=== PATIENT | male | born 1960 | race Caucasian/White ===

== ENCOUNTER 2020-01-13 09:07 | Day surgery (SDC) | payer OTHER, SELFPAY ==
[2020-01-01 19:56] VITALS: BMI 20.3
--- NOTE | 2020-01-06 15:26 | P.CONAN_ITS ---
Documented by User: Jeanine Zimmerman 01/06/20 15:27 HPI - Anesthesia Eval Consult details Narrative: 59yo M for Colonoscopy [facility] Past Medical History Medical History (Updated 01/13/20 @ 10:22 by Elle Rich) Anxiety Hair loss Hypertension Sleep disorder Surgical History Surgical History History of colonoscopy Social History Social History Smoking Status: Never smoker Use of substances other than those prescribed or required for medical reasons: No Advance Directives: No Advance Directives Information Provided: No Advance Directives on File: No Recently lost weight without trying: No Meds Allergies Allergy/AdvReac Type Severity Reaction Status Date / Time No Known Allergies Allergy Verified 01/08/20 08:58 Home Medications Medication Instructions Recorded Confirmed Type citalopram [Celexa] 30 mg PO DAILY 01/01/20 01/01/20 History finasteride 5 mg PO DAILY 01/01/20 01/01/20 History lisinopril 10 mg PO DAILY 01/01/20 01/01/20 History trazodone 100 mg PO BEDTIME 01/01/20 01/01/20 History Exam Exam Date and Time: January 06, 2020 1526 Height,Weight and Vital Signs: Height 5 ft 9 in Weight 62.596 kg Assessment and Plan Assessment Anesthesia Assessment: Chart Reviewed Documented by User: Elle Rich 01/13/20 10:22 [facility] Past Medical History Medical History (Updated 01/13/20 @ 10:22 by Elle Rich) Anxiety Hair loss Hypertension Sleep disorder Family History Family history of problems with anesthesia: No Surgical History Surgical History History of colonoscopy History of Problems with Anesthesia: No Social History Social History Smoking Status: Never smoker Use of substances other than those prescribed or required for medical reasons: No Advance Directives: No Advance Directives Information Provided: No Advance Directives on File: No Recently lost weight without trying: No Meds Allergies Allergy/AdvReac Type Severity Reaction Status Date / Time No Known Allergies Allergy Verified 01/08/20 08:58 Home Medications Medication Instructions Recorded Confirmed Type citalopram [Celexa] 30 mg PO DAILY 01/01/20 01/01/20 History finasteride 5 mg PO DAILY 01/01/20 01/01/20 History lisinopril 10 mg PO DAILY 01/01/20 01/01/20 History trazodone 100 mg PO BEDTIME 01/01/20 01/01/20 History Exam Height,Weight and Vital Signs: Vital Signs Temp Pulse Resp BP Pulse Ox 01/13/20 09:50 97.5 F 74 18 115/74 100 Airway Mallampati Class: II TM Dist: >3cm Neck ROM: Full Heart: RRR Lungs: CTAB Assessment and Plan Assessment Anesthesia Assessment: Anesthesia Plan Discussed and Chart Reviewed Final Anesthetic Review NPO: Yes ASA Class: II Final Preanesthetic Review: No Changes in Pt Med Stat, Meds/Allgs Chart Re viewed, Consent Obtained/Reviewed and Anes Risks/Benef Reviewed Patient Risk: Low Procedure Risk: Low Anesthetic Plan Anesthetic Plan: MAC: Disposition: Standard PACU
[2020-01-13 09:50] VITALS: BP 115/74; PULSE 74; RESP 18; TEMP 36.4; O2SAT 100
[2020-01-13] MEDS: Lactated Ringers 1,000 ML 100 ML IVCONT (10:05)
[2020-01-13 11:25] VITALS: BP 90/56; PULSE 79; RESP 14; TEMP 36.2; O2SAT 100
--- NOTE | 2020-01-13 11:27 | PM.OP ---
Brief Operative Note Date of Service: 01/13/20 Pre-op diagnosis: Screening, Hx of tubular adenomas Post-op diagnosis: other (Colon polyp, Diverticulosis) Procedure: Colonoscopy to cecum and TI with biopsy and removal of polyp Surgeon: Rock Boland Anesthesia: MAC Estimated blood loss (mL): 3.0 Pathology: other (A. Ascending colon polyp) Condition: stable Disposition: PACU
[2020-01-13 11:41] VITALS: BP 95/70; PULSE 53; RESP 16; TEMP 36.2; O2SAT 100
[2020-01-13 11:47] VITALS: BP 102/70
--- NOTE | 2020-01-13 11:51 | OP_ITS ---
SURGEON: Rock Boland MD INDICATIONS: The patient presents for evaluation of colorectal cancer screening and personal history of tubular adenoma of the colon. Full consent has been obtained from him for this, including risks of bleeding and perforation. PREOPERATIVE DIAGNOSIS: POSTOPERATIVE DIAGNOSIS: PROCEDURE PERFORMED: Colonoscopy to cecum and terminal ileum with biopsy and removal of polyp. ESTIMATED BLOOD LOSS: COMPLICATIONS: ANESTHESIA: Monitored anesthesia care. ASSISTANTS: SPECIMENS: PREOPERATIVE DIAGNOSES: Personal history of tubular adenoma of the colon and colorectal cancer screening. POSTOPERATIVE DIAGNOSES: Personal history of tubular adenoma of the colon and colorectal cancer screening, small colon polyp, diverticulosis and internal hemorrhoids. DESCRIPTION OF PROCEDURE: The patient was placed in the left lateral decubitus position. The digital rectal exam revealed no abnormalities. The Olympus video pediatric colonoscope was entered into the rectum and advanced easily to the cecum. Once in the cecum, I did identify normal-appearing cecal pouch with appendiceal orifice and a normal-appearing ileocecal valve. The terminal ileum was cannulated and appeared normal. The scope was withdrawn back in the colon. The entire cecum and ileocecal valve appeared normal. The scope was slowly withdrawn assessing all mucosal surfaces carefully. Preparation was excellent. In the ascending colon, was a flat approximately 4 mm polyp, which was biopsied and completely removed with cold biopsy forceps. I did not visualize any other polyps, colitis, nor angiodysplasia. There was a mild amount of sigmoid diverticulosis. In the rectum, scope was retroflexed visualizing internal hemorrhoids, but no other pathology. The scope was straightened out and withdrawn from the patient. He tolerated the procedure well and was returned to recovery area in stable condition. IMPRESSION: 1. Small colon polyp, status post biopsy and removal. 2. Diverticulosis. 3. Internal hemorrhoids. PLAN: The results of the biopsy will be checked. I would recommend a repeat colonoscopy in 5 years for further screening and surveillance. He will otherwise see me on a p.r.n. basis. MD TRISTON Elizabeth/HANNAH / [id number]
--- NOTE | 2020-01-13 12:06 | HO.POSTANES ---
Post Anesthesia Evaluation Post Anesthesia Evaluation Vital Signs: Vital Signs Temp Pulse Resp BP Pulse Ox 01/13/20 11:47 102/70 01/13/20 11:41 97.2 F 53 16 95/70 100 01/13/20 11:25 97.2 F 79 14 90/56 L 100 01/13/20 09:50 97.5 F 74 18 115/74 100 Anesthesia: Monitored Mental Status: Awake Pain Control: Satisfactory Nausea/Vomiting: None Hydration: Adequate Anesthesia-Related Issues: No Anes. Related Issues
== END 2020-01-13 23:59 | disposition home or self-care (01) ==
PROVIDERS: PCP Nurse Practitioner Family; Visit Provider Internal Medicine
PROC: 0DJD8ZZ Inspection of Lower Intestinal Tract, Via Natural or Artificial Opening Endoscopic (ICD-10-PCS; CPT 45378; principal; 2020-01-13 10:30)
DX: Z12.11 Encounter for screening for malignant neoplasm of colon (principal); D12.2 Benign neoplasm of ascending colon; K57.30 Diverticulosis of large intestine without perforation or abscess without bleeding; K64.8 Other hemorrhoids; I10 Essential (primary) hypertension; Z79.899 Other long term (current) drug therapy; Z86.010 Personal history of colon polyps
CPT/HCPCS: 45380; 88305

== ENCOUNTER 2021-03-29 09:36 | Outpatient (REF) | payer OTHER, SELFPAY ==
[2021-03-29 11:45] LABS: Appearance Urine CLEAR; Color Urine YELLOW; Glucose Urine UA NEG (NEG); Leukocyte Esterase Urine NEG (NEG); Nitrite Urine NEG (NEG); Urine Blood NEG (NEG); Urine Ketones NEG (NEG); Urine Protein NEG (NEG-TRACE)
[2021-03-29 12:11] LABS: Alanine Aminotransferase 17 U/L (0-40); Albumin Level 4.4 g/dL (3.5-5.0); Alkaline Phosphatase 81 U/L (39-117); Anion Gap 10 (12-20); Aspartate Amino Transferase 20 U/L (5-37); Bilirubin Total 0.6 mg/dL (0.0-1.0); Blood Urea Nitrogen 20 mg/dL (9-16); Calcium 9.5 mg/dL (8.4-10.2); Carbon Dioxide 31 mmol/L (22-29); Chloride 104 mmol/L (96-108); Cholesterol 217 mg/dL; Estimated Glomerular Filt Rate > 60; Glucose Fasting 90 mg/dL (60-99); HDL Cholesterol 76 mg/dL; LDL Cholesterol Calculated 127 mg/dl; Potassium 4.5 mmol/L (3.3-5.1); Sodium 140 mmol/L (135-145); Triglycerides 70 mg/dL
[2021-03-29 12:24] LABS: Prostate Specific Antigen Scr 0.13 ng/mL (<0.05-4.0); TSH reflex Free T4 2.07 uIU/mL (0.32-4.0)
== END 2021-03-29 09:37 | disposition home or self-care (01) ==
LOC: HO.HMGCLDS 09:36
PROVIDERS: Visit Provider Nurse Practitioner Family
DX: Z12.5 Encounter for screening for malignant neoplasm of prostate (principal); I10 Essential (primary) hypertension
CPT/HCPCS: 36415; 80053; 80061; 81003; 84153; 84443

== ENCOUNTER 2021-09-06 15:54 | Emergency (ER) | payer OTHER, SELFPAY ==
--- NOTE | ~2021-09-06 | XR_ITS ---
EXAMINATION: XR ANKLE, LEFT CLINICAL INFORMATION: Left ankle pain. COMPARISON: None TECHNIQUE: AP, lateral, and mortise views of the left ankle. FINDINGS: There is an acute, mildly displaced oblique fracture of the distal fibula metadiaphysis as well as the medial malleolus. Associated anteromedial displacement of the tibia relative to the talus is seen. The talar dome is intact. A definitive posterior malleolus fracture is not seen. There is mild soft tissue swelling. The tarsal bones are normally aligned. Small plantar calcaneal spur. XR/XR ankle LT 2V IMPRESSION: Acute displaced left femoral fracture as detailed above.
--- NOTE | ~2021-09-06 | XR_ITS ---
EXAMINATION: XR ANKLE, LEFT CLINICAL INFORMATION: Postreduction COMPARISON: Left ankle radiographs performed earlier the same day TECHNIQUE: AP and crosstable lateral views of the left ankle. FINDINGS: Overlying splint material obscures fine osseous detail. Significant interval improvement alignment. Again seen is a Hoover type B distal fibular fracture, displaced transverse medial malleolar fracture and a suspected minimally displaced posterior malleolar fracture. Ankle mortise is now more congruent. No new fracture identified XR/XR ankle LT 2V IMPRESSION: . 1. Significantly improved alignment of the trimalleolar ankle fractures.
[2021-09-06 15:59] VITALS: BP 138/74; PULSE 69; RESP 16; TEMP 37.3; O2SAT 98; BMI 21.1
--- NOTE | 2021-09-06 16:13 | ED_ITS ---
HPI - General Adult General Chief complaint: Extremity Injury, Lower Stated complaint: L ANKLE PAIN/SWELLS/P ROLLED TENNIS Time Seen by Provider: 09/06/21 16:13 Source: patient Mode of arrival: wheelchair Limitations: no limitations History of Present Illness HPI narrative: Patient is a 61 year old male with a history of HTN presenting to the emergency department today with left ankle pain. Patient states that he lost his balance while playing tennis and his left ankle snapped. Patient denies hitting his head with the incident or any loss of consciousness. Patient denies any dizziness, lightheadedness, abdominal pain, nausea, vomiting, fever, chills, blurry vision, double vision, loss of vision, chest pain, difficulty breathing, shortness of breath, back pain, night sweats, pain with urination, increased urinary frequency, increased urinary urgency, blood in [his/her] urine or stool, syncope or a near syncopal episode, bowel incontinence, bladder incontinence, bowel retention, bladder retention, or any other complaints at this time. Onset (ago): hour(s) Location: left and lower extremity Radiation: non-radiation Severity: mild Severity scale (1-10): >10 Quality: aching Pain Consistency: constant Relieving factors: none Exacerbating factors: movement Associated symptoms: denies other symptoms Treatments prior to arrival: none Related Data Home Medications Medication Instructions Recorded Confirmed finasteride 5 mg tablet 5 mg PO DAILY 01/01/20 01/01/20 trazodone 100 mg tablet 100 mg PO BEDTIME 01/01/20 01/01/20 Previous Rx's Medication Instructions Recorded lisinopril 10 mg tablet 10 mg PO DAILY 90 days #90 tabs 07/10/21 citalopram 10 mg tablet 10 mg PO DAILY 90 days #90 tabs 08/12/21 citalopram 20 mg tablet 20 mg PO DAILY 90 days #90 tabs 08/12/21 trazodone 100 mg tablet 100 mg PO BEDTIME PRN sleep 90 08/12/21 days #90 tabs Allergies Allergy/AdvReac Type Severity Reaction Status Date / Time No Known Allergies Allergy Verified 05/21/21 13:07 Review of Systems Constitutional: Constitutional: Reports no additional constitutional complaints, Denies chills, Denies fever(s) and Denies night sweats Eyes: Eyes: Reports no additional eye complaints, Denies blurry vision, Denies change in vision, Denies diplopia, Denies eye discharge, Denies loss of vision and Denies eye pain ENT: Denies dizziness Cardiovascular: Cardiovascular: Reports no additional cardiovascular complaints, Denies chest pain, Denies lightheadedness, Denies Loss of Consciousness and Denies dyspnea Respiratory: Respiratory: Reports no additional respiratory complaints and Denies dyspnea Gastrointestinal: Gastrointestinal: Reports no additional gastrointestinal complaints, Denies abdominal pain, Denies melena, Denies hematochezia, Denies change in bowel habits and Denies change in stool character Genitourinary: Genitourinary: Reports no additional male genitourinary complaints, Denies hematuria, Denies oliguria, Denies difficulty urinating, Denies dysuria, Denies urinary frequency, Denies urinary hesitancy, Denies urinary incontinence and Denies urinary urgency Musculoskeletal: Musculoskeletal: Reports no additional musculoskeletal complaints, Denies numbness and Denies tingling Neurologic: Denies dizziness, Denies loss of vision, Denies numbness and Denies tingling Psychiatric: Psychiatric: Reports no additional psychiatric complaints Endocrine: Endocrine: Reports no additional endocrine complaints Hematologic/Lymphatic: Hematologic/Lymphatic: Reports no additional hematologic/lymphatic complaints Allergic/Immunologic: Allergic/Immunologic: Reports no additional allergic/immunologic complaints PMFSH Past Medical History Attestation statement: The following information was validated with the patient. Source: old records reviewed Medical History (Updated 09/06/21 @ 18:59 by DANAE Meraz) Anxiety Hair loss Hypertension Sleep disorder Surgical History History of colonoscopy Social History Social History Alcohol intake: current Alcohol intake frequency: 0-2 drinks per day Alcohol type: wine Patient Tobacco Use Status: Never used Tobacco Use of substances other than those prescribed or required for medical reasons: No Advance Directives: No Advance Directives Information Provided: No Physical Exam ED Vital Signs: Vital Signs - 24 hr 09/06/21 15:59 Temperature 99.1 F Pulse Rate 69 Respiratory Rate 16 Blood Pressure 138/74 Pulse Oximetry 98 Oxygen Delivery Method Room Air BMI result Body Mass Index 21.1 Const General: cooperative, no acute distress, alert and awake Nutritional Appearance: well nourished Orientation/consciousness: patient oriented x3 Limitations: no limitations HENMT Head: Yes normal to inspection and Yes atraumatic Ears: hearing grossly normal bilaterally and external ears normal General nose exam: Normal external nose present, no nasal discharge noted and no epistaxis Face and sinus: Yes normal facial exam, No abrasion and No laceration Mouth: Normal oral and palatal mucosa present, no drooling and no muffled voice Eyes General: appearance normal, both eyes and all related structures Periorbital: periorbital findings normal Eyelids: Yes eyelids normal Conjunctivae: conjunctivae normal Pupils: Equal, round and reactive pupils present EOM: EOMs intact bilaterally Neck Neck: Yes normal visual inspection, Yes full ROM and Yes no lymphadenopathy Chest Chest palpation & inspection: normal inspection of the chest Resp Effort & Inspection: normal respiratory effort and able to speak in complete sentences Auscultation: clear to auscultation bilaterally Cardio Rate: regular rate Rhythm: regular rhythm GI Inspection: Yes normal to inspection Palpation (GI): Soft to palpation, not firm and nontender Neuro General: patient oriented x3 and moves all extremities Cranial nerves: Yes Equal, round and reactive pupils present Cognition (Neuro): normal cognition Motor exam (neuro): 5/5 motor strength present throughout Sensory Exam: Normal double simultaneous stimulation for sensation Coordination: [id number] test normal Extrem Other: left ankle is obviously deformed, painful to palpation, no open areas General: Yes capillary refill normal Psych Appearance: grossly normal Mental Status: mental status grossly normal Affect: normal affect Attitude: cooperative Thought process: Normal thought process present Thought content: Normal thought content present Insight: Good insight present (Psych) Course Consultations Consultation #1: Spoke to Dr. Hsu who recommended the patient's ankle be reduced here in the ED, splinted, and the patient follow up with their office next Monday. Procedures Orthopedic Fracture Reduction Fracture #1: Time Out Performed: Yes Side: left Fracture Reduction Location: fibula and other (ankle) Analgesia: hematoma block Technique: direct manipulation and traction/counter-traction Post Reduction X-rays Demonstrate: anatomical reduction Post-reduction neuro exam: intact Post-reduction vascular exam: intact Splint Applied: Yes Patient Tolerated Procedure: well Orthopedic Splinting/Casting Injury #1: Side: left Lower Extremity Injury Location: ankle Lower Extremity Immobilizer: posterior splint and El wrap Other Orthopedic Equipment: crutches Medical Decision Making MDM Narrative Medical decision making narrative: Patient is a 61 year old male presenting to the emergency department today with left ankle pain. Patient's physical exam showed an obviously deformed left ankle with no open areas. Left lower extremity had intact PMS. Patient's left ankle x-ray showed a mildly displaced oblique fracture of the distal fibula metadiaphysis as well as the medial malleolus with associated anteromedial d isplacement of the tibia relative to the talus. I explained my physical exam findings as well as all test results to the patient. I answered all questions asked by the patient. My attending physician Dr. Navarro placed a hematoma block in the left ankle and together, we reduced the fracture. Patient's PMS was intact prior to and after the reduction. Patient's post reduction film showed significantly improved alignment of the trimallelolar fractures. Patient's ankle was splinted without incident. I stressed the importance of the patient taking his medication as prescribed. I stressed the importance of the patient following up with his primary care provider and an orthopedic provider. I stressed the importance of the patient being non-weight bearing on the left lower extremity and keeping the left lower extremity elevated at all times possible. I stressed the importance of the patient returning to the emergency department immediately if his symptoms were to worsen or if he were to develop any dizziness, shortness of breath, difficulty breathing, chest pain, blurry vision, loss of vision, nausea, vomiting, abdominal pain, fever, chills, back pain, or any other complaints. Patient verbalized agreement and understanding with this treatment plan and discharge. Differential Diagnosis Differential Diagnosis: left ankle fracture Medical Records Medical records reviewed: Yes I reviewed the patient's medical records. Imaging Data Left ankle x-ray: Attestation: I personally reviewed and interpreted this imaging study as follows: My impression: Acute ankle fracture with displacement Radiologist's impression: EXAMINATION: XR ANKLE, LEFT CLINICAL INFORMATION: Left ankle pain.? COMPARISON: None? TECHNIQUE: AP, lateral, and mortise views of the left ankle. FINDINGS: There is an acute, mildly displaced oblique fracture of the distal fibula metadiaphysis as well as the medial malleolus. Associated anteromedial displacement of the tibia relative to the talus is seen. The talar dome is intact. A definitive posterior malleolus fracture is not seen. There is mild soft tissue swelling. The tarsal bones are normally aligned. Small plantar calcaneal spur. XR/XR ankle LT 2V IMPRESSION: Acute displaced left fibular fracture as detailed above. Dictated By: Jamie Hooker MD Signed By: Electronically signed by Jamie Hooker MD 09/06/21 1652 Left ankle x-ray post reduction: Attestation: I personally reviewed and interpreted this imaging study as follows: My impression: Improved anatomical alignment Radiologist's impression: EXAMINATION: XR ANKLE, LEFT CLINICAL INFORMATION: Postreduction? COMPARISON: Left ankle radiographs performed earlier the same day? TECHNIQUE: AP and crosstable lateral views of the left ankle. FINDINGS: Overlying splint material obscures fine osseous detail. Significant interval improvement alignment. Again seen is a Hoover type B distal fibular fracture, displaced transverse medial malleolar fracture and a suspected minimally displaced posterior malleolar fracture. Ankle mortise is now more congruent. No new fracture identified? XR/XR ankle LT 2V IMPRESSION: 1. Significantly improved alignment of the trimalleolar ankle fractures. Dictated By: Wm Pavon Signed By: Electronically signed by Antwon 09/06/21 1037 Discharge Plan Discharge Clinical Impression: Ankle fracture Patient Disposition: Home, Self-Care Instructions: Ankle Fracture (ED), Crutch Instructions (ED), Closed Reduction Internal Fixation of Leg Fracture in Adults (DC) Additional Instructions: Elevate the left lower extremity as much as possible. Follow up with your primary care provider and an orthopedic shoes salesperson. Return to the emergency department immediately if your symptoms worsen or if you develop any dizziness, shortness of breath, difficulty breathing, chest pain, blurry vision, loss of vision, nausea, vomiting, abdominal pain, fever, chills, back pain, or any other complaints. Prescriptions: No Action lisinopril 10 mg tablet 10 mg PO DAILY 90 Days Qty: 90 1RF citalopram 20 mg tablet 20 mg PO DAILY 90 Days Qty: 90 0RF citalopram 10 mg tablet 10 mg PO DAILY 90 Days Qty: 90 0RF Rx Instructions: please take concurrently with citalopram 20mg tabs (total:30mg daily) trazodone 100 mg tablet 100 mg PO BEDTIME PRN (Reason: sleep) 90 Days Qty: 90 0RF finasteride 5 mg Tablet 5 mg PO DAILY trazodone 100 mg Tablet 100 mg PO BEDTIME Referrals: [facility] [place] [facility] [Provider Group] (Call tomorrow to schedule follow up with an orthopedic shoes salesperson. ) Gucci Andrade, [employer] [Primary Care Provider] - Print Language: Serbian
[2021-09-06] MEDS: Lidocaine HCl 1 % MPF 5 ML VIAL 10 ML SUBCUT (18:05)
--- NOTE | 2021-09-06 18:05 | PC.NURSE ---
lidocaine administered by provider prior to fx reduction. pt denies any pain at this time, pending radiology results.
== END 2021-09-06 19:32 | disposition home or self-care (01) ==
PROVIDERS: Emergency Provider Emergency Medicine; PCP Nurse Practitioner Family
DX: S82.892A Other fracture of left lower leg, initial encounter for closed fracture (principal); I10 Essential (primary) hypertension; Y33.XXXA Other specified events, undetermined intent, initial encounter; Y93.59 Activity, other involving other sports and athletics played individually; Y92.312 Tennis court as the place of occurrence of the external cause; Y99.9 Unspecified external cause status; Z79.899 Other long term (current) drug therapy
CPT/HCPCS: 27818; 29515; 73600; 99283; 99284

== ENCOUNTER 2021-09-15 10:39 | Day surgery (SDC) | payer OTHER, SELFPAY ==
--- NOTE | 2021-09-14 10:01 | P.CONAN_ITS ---
Documented by User: Jeanine Zimmerman NP 09/14/21 10:10 HPI - Anesthesia Eval Consult details Narrative: 61yo M for Ankle Fracture ORIF PMFSH Active Problems Active Problems: All Active Problems (Updated 09/13/21 @ 16:42 by DAMIAN FarrarMICHELLE) Physical exam (Acute) Bimalleolar ankle fracture (Acute) Cerumen impaction (Acute) Screening PSA (prostate specific antigen) (Acute) HTN (hypertension) (Acute) Hair loss (Acute) Sleep disorder (Acute) Past Medical History Medical History Anxiety Hair loss Hypertension Sleep disorder Family History Family History Sister Mental health disorder Family history of problems with anesthesia: No Surgical History Surgical History (Updated 09/15/21 @ 11:11 by Kellen Godwin RN) History of colonoscopy History of Problems with Anesthesia: No Social History Social History Housing: House Alcohol intake: current Alcohol intake frequency: 0-2 drinks per day Alcohol type: wine Patient Tobacco Use Status: Former Tobacco user Quit Date: 30 yr ago e-Cigarette/Vaping Use: Never Used Second Hand Smoke Exposure: No Use of substances other than those prescribed or required for medical reasons: No Are you DNR?: No Advance Directives: No Advance Directives Information Provided: Yes service: No Current occupational status: unemployed Cognitive needs: No Hearing needs: No Vision needs: No Meds Allergies Allergy/AdvReac Type Severity Reaction Status Date / Time No Known Allergies Allergy Verified 09/13/21 16:44 Home Medications Medication Instructions Recorded Confirmed Last Taken Type finasteride 5 mg tablet 5 mg PO DAILY 01/01/20 09/15/21 Unknown History trazodone 100 mg tablet 100 mg PO BEDTIME 01/01/20 09/15/21 Unknown History Exam Exam Date and Time: September 14, 2021 1001 Pertinent Lab Results Pertinent Lab Results: Laboratory Tests 03/29/21 09:40 Sodium 140 Potassium 4.5 Chloride 104 Carbon Dioxide 31 H BUN 20 H Creatinine 0.83 Assessment and Plan Assessment Anesthesia Assessment: Chart Reviewed Final Anesthetic Review Family History of Problems with Anesthesia: No History of Problems with Anesthesia: No Documented by User: Perry Olivera MD 09/15/21 15:47 HPI - Anesthesia Eval Consult details Narrative: 61yo M for Ankle Fracture ORIF As per pre op RN patient yin 100.9 , repeat temp was 98.7 F Patient asymptomatic , denies any symptoms including URI or urinary . Does admit that he has been feeling a little warm . Case discussed with the surgeon , possibly may be secondary to trauma , As per him this is urgent and needs to proceed . [facility] Past Medical History Medical History Anxiety Hair loss Hypertension Sleep disorder Family History Family History Sister Mental health disorder Surgical History Surgical History (Updated 09/15/21 @ 11:11 by Kellen Godwin RN) History of colonoscopy Social History Social History Housing: House Alcohol intake: current Alcohol intake frequency: 0-2 drinks per day Alcohol type: wine Patient Tobacco Use Status: Former Tobacco user Quit Date: 30 yr ago e-Cigarette/Vaping Use: Never Used Second Hand Smoke Exposure: No Use of substances other than those prescribed or required for medical reasons: No Are you DNR?: No Advance Directives: No Advance Directives Information Provided: Yes service: No Current occupational status: unemployed Cognitive needs: No Hearing needs: No Vision needs: No Meds Allergies Allergy/AdvReac Type Severity Reaction Status Date / Time No Known Allergies Allergy Verified 09/13/21 16:44 Home Medications Medication Instructions Recorded Confirmed Last Taken Type finasteride 5 mg tablet 5 mg PO DAILY 01/01/20 09/15/21 Unknown History trazodone 100 mg tablet 100 mg PO BEDTIME 01/01/20 09/15/21 Unknown History Exam Airway Mallampati Class: III TM Dist: >3cm Neck ROM: Full Loose/Missing/Broken Teeth: Yes (Chipped teeth , fillings , poor dentition globally ) Heart: S1,S2 Lungs: b/l breath sounds Assessment and Plan Assessment Anesthesia Assessment: Anesthesia Plan Discussed Final Anesthetic Review NPO: Yes ASA Class: II (urgent ) Final Preanesthetic Review: Meds/Allgs Chart Reviewed, Consent Obtained/Reviewed and Anes Risks/Benef Reviewed Patient Risk: Intermediate Procedure Risk: Intermediate Anesthetic Plan Anesthetic Plan: GA Disposition: Standard PACU
[2021-09-15] VITALS (11 sets, daily range): BP systolic 117–131; BP diastolic 75–84; PULSE 70–101; RESP 15–18; TEMP 36.6–38.3; O2SAT 95–100; BMI 20.6
--- NOTE | ~2021-09-15 | FL_ITS ---
EXAMINATION: XR FLUOROSCOPY WITH IMAGES CLINICAL INFORMATION: Left ankle trimalleolar fracture, reduction. COMPARISON: Radiographs left ankle 09/06/2021 TECHNIQUE: Fluoroscopy performed by Dr. Bhavesh Floyd. Fluoroscopy time: 0.4 minutes. Cumulative Dose: 2.58 mGy. DAP: 0.045 Gy-cm2. Images: 5. FINDINGS: Lateral malleoli fracture is reduced with lateral side plate and multiple screws. Medial malleoli fracture is reduced with 2 screws. Fracture fragments are in near-anatomic alignment. Ankle mortise is symmetric. Hardware is intact. No destructive process. There is small vertically oriented fracture periphery posterior malleolus again noted. No significant displacement. FL/FL guidance in OR IMPRESSION: Status post open reduction internal fixation ankle fracture. Hardware intact. Near-anatomic alignment.
--- NOTE | 2021-09-15 11:34 | PC.NURSE ---
pt temp 99.5 temporal. oral temp 100.9. anesthesia made aware and will come evaluate. pt states has been feeling warm for a few days but no ther symptoms. ls clear
[2021-09-15] MEDS: Lactated Ringers 1,000 ML 100 ML IVCONT (11:51)
--- NOTE | 2021-09-15 12:05 | MHC.SHP ---
Pre-Procedural Eval Section A Date of Service: 09/15/21 The patient is an INPATIENT: No Changes since office visit: Yes Patient answered all questions; No Cold of Flu in the past 2 weeks, No New Medical Problems and No Changes in Medication The History & Physical has been completed within 30 days and I have reviewed it.: Yes Section B Chief Complaint: ankle fx Allergies: Allergies Allergy/AdvReac Type Severity Reaction Status Date / Time No Known Allergies Allergy Verified 09/13/21 16:44 Plan I have reviewed the history and physical and performed a pertinent physical examination on my patient. No changes have occurred unless specified.
--- NOTE | 2021-09-15 15:38 | P.BOP_ITS ---
Brief Operative Note Date of Service: 09/15/21 Pre-op diagnosis: left ankle fracture Post-op diagnosis: same Procedure: ORIF left ankle bimall Implants: Gina lateral locking plate Gina 4.0 cannulated screws, medial x2 Surgeon: Bhavesh Floyd MD Anesthesia: GETA and local Was an Loader Magazine Grinder used for this Procedure?: Yes Loader Magazine Grinder: Pilar Da Silva Estimated blood loss (mL): 5 Tourniquet time (min): 70 IV fluids (mL): 1,000 Pathology: none sent Condition: stable Disposition: PACU
--- NOTE | 2021-09-15 15:43 | P.OP_ITS ---
Operative Note Operative Note Date of Service: 09/15/21 Narrative: Date of Service: 09/15/21 Pre-op diagnosis: left ankle fracture Post-op diagnosis: same Procedure: ORIF left ankle bimall Implants: Gina lateral locking plate Gina 4.0 cannulated screws, medial x2 Surgeon: Bhavesh Floyd MD Anesthesia: GETA and local Was an Stud Dairy Cattle Farmer used for this Procedure?: Yes Stud Dairy Cattle Farmer: Pilar Da Silva Estimated blood loss (mL): 5 Tourniquet time (min): 70 IV fluids (mL): 1,000 Pathology: none sent Condition: stable Disposition: PACU Procedure in detail: Patient was brought to the operating room and placed supine on the operative table. All bony prominences were well padded and a time-out was called to identify proper site proper procedure proper surgeon. IV antibiotics per weight were administered. I began by exsanguinating limb is slightly tourniquet to 300 mm Hg. I then made a standard posterolateral incision over the fibula. Full- thickness flaps were taken down to the fibular shaft and distal fibula. The fracture was identified and cleaned with a combination of curette, rongeur and irrigation. It was a long oblique fracture with comminution anterodistally. A sharp was used to provisionally reduce the fracture and 2 A-P scres were placed using AO lag screw technique. A 6 hole distal fibular locking plate was applied using standard AO technique. Biplanar fluoroscopy was used to confirm hardware position and fracture reduction. Once I was satisfied that both of these were acceptable I irrigated copiously and turned my attention to the medial side. The transverse medial malleolar fracture was identified after skin incision. Full-thickness skin flaps were developed and, With a sharp tenaculum, the fracture was reduced. 2 threaded K-wires were then placed from distal to proximal and perpendicular to the fracture. Biplanar fluoroscopy was used to confirm positioning and then they were overdrilled and 2 40 mm 4.0 partially- threaded cannulated cancellous screws were placed across the fracture. I was satisfied with the position and the fracture reduction based on biplanar fluoroscopy. This syndesmosis was tested using external rotation test and was found to be stable. Therefore all instrumentation was removed and copious irrigation was performed. Absorbable suture and chantell were used for closure and the patient was placed into sterile dressings and a well-padded posterior splint. Tourniquet was let down and the patient was extubated brought to recovery room in stable condition there were no known complications.
[2021-09-15] MEDS: Acetaminophen 325 MG TABLET 650 MG PO (16:29)
[2021-09-15] MEDS: HYDROmorphone HCl 0.5 MG/0.5 ML SYRINGE 0.25 MG IVPUSH (16:32)
== END 2021-09-15 17:15 | disposition home or self-care (01) ==
PROVIDERS: PCP Nurse Practitioner Family; Visit Provider Orthopaedic Surgery
PROC: (CPT 27814; principal; 2021-09-15 13:20)
DX: S82.842A Displaced bimalleolar fracture of left lower leg, initial encounter for closed fracture (principal); W18.49XA Other slipping, tripping and stumbling without falling, initial encounter; Y93.73 Activity, racquet and hand sports; Y92.9 Unspecified place or not applicable; I10 Essential (primary) hypertension; F41.1 Generalized anxiety disorder; G47.9 Sleep disorder, unspecified; Z79.899 Other long term (current) drug therapy
CPT/HCPCS: 27814; A4649; C1713; J0690; J1100; J1170; J2250; J2405; J2795; J3010

== ENCOUNTER 2021-09-27 07:48 | Outpatient (REF) | payer OTHER, SELFPAY ==
--- NOTE | ~2021-09-27 | XR_ITS ---
EXAMINATION: XR ANKLE, LEFT CLINICAL INFORMATION: Fracture COMPARISON: Previous x-rays 09/06/2021 and intraoperative fluoroscopy 09/15/2021 TECHNIQUE: AP, lateral, and mortise views of the left ankle. FINDINGS: There are 2 screws transfixing the medial malleolar fracture. There is a plate and screws transfixing the distal fibular shaft fracture. Hardware appears unchanged. Alignment is anatomic. The ankle mortise is normal. There are skin chantell. There is a small plantar calcaneal spur. XR/XR ankle LT min 3V IMPRESSION: ORIF of medial malleolar and distal fibular shaft fractures.
== END 2021-09-27 07:49 | disposition home or self-care (01) ==
LOC: HO.HOSX 07:48
PROVIDERS: Visit Provider Physician Assistant
DX: M25.572 Pain in left ankle and joints of left foot (principal)
CPT/HCPCS: 73610

== ENCOUNTER 2021-10-25 07:54 | Outpatient (REF) | payer OTHER, SELFPAY ==
--- NOTE | ~2021-10-25 | XR_ITS ---
EXAMINATION: XR ANKLE, LEFT CLINICAL INFORMATION: Pain COMPARISON: Ankle radiographs 09/27/2021 TECHNIQUE: AP, lateral, and mortise views of the left ankle. FINDINGS: Interval removal of soft tissue chantell. Again seen are postoperative changes of ORIF of the medial malleolus and distal fibular fractures in unchanged alignment, with decreasing conspicuity of the fracture margins suggesting ongoing healing. Ankle mortise is congruent. Disuse osteopenia. Soft tissues are unremarkable. Moderate tibiotalar joint effusion. XR/XR ankle LT min 3V IMPRESSION: Interval removal of soft tissue chantell. Again seen are postoperative changes of ORIF of the medial malleolus and distal fibular fractures in unchanged alignment, with decreasing conspicuity of the fracture margins suggesting ongoing healing. Disuse osteopenia. Moderate tibiotalar joint effusion.
== END 2021-10-25 07:55 | disposition home or self-care (01) ==
LOC: HO.HOSX 07:54
PROVIDERS: Visit Provider Physician Assistant
DX: M25.572 Pain in left ankle and joints of left foot (principal)
CPT/HCPCS: 73610

== ENCOUNTER 2021-11-22 10:01 | Outpatient (REF) | payer OTHER, SELFPAY ==
[2021-11-22 11:16] LABS: MANUAL DIFF FLAG NO
[2021-11-22 11:24] LABS: Basophils Percent Auto 0.8 % (0-2); Eosinophils Absolute Auto 0.1 X10*3/uL (0.0-0.4); Eosinophils Percent Auto 1.3 % (0-4); Hematocrit 39.8 % (42.0-52.0); Hemoglobin 13.6 g/dl (14.0-18.0); Imm Gran Abs Auto 0.02 X10*3/uL (0.00-0.03); Imm Gran Pct Auto 0.4 % (0.0-0.4); Lymphocytes Absolute Auto 1.6 X10*3/uL (1.2-4.9); Lymphocytes Percent Auto 31.3 % (20-40); Mean Corpuscular HGB Conc 34.2 g/dl (31.0-36.0); Mean Corpuscular Hemoglobin 31.9 pg (27.0-33.0); Mean Corpuscular Volume 93.4 fL (80.0-98.0); Mean Platelet Volume 10.1 fL (9.4-12.4); Monocytes Absolute Auto 0.3 X10*3/uL (0.1-1.2); Monocytes Percent Auto 6.3 % (2-11); Neutrophils Absolute Auto 3.1 x10*3/uL (2.0-8.3); Neutrophils Percent Auto 59.9 % (45-73); Platelet Count 197 X10*3/uL (160-400); Red Blood Count 4.26 X10*6/uL (4.60-5.80); Red Cell Distribution Width 12.4 % (11.0-16.0); White Blood Count 5.2 X10*3/uL (4.8-10.8)
[2021-11-22 11:26] LABS: Appearance Urine Clear; Color Urine Yellow; Glucose Urine UA Negative (Negative); Leukocyte Esterase Urine Negative (Negative); Nitrite Urine Negative (Negative); PH 8.5 (5.0-9.0); Specific Gravity - Urine 1.015 (1.005-1.025); Urine Blood Negative (Negative); Urine Ketones Negative (Negative); Urine Protein Negative (Neg-Trace)
[2021-11-22 11:40] LABS: Alanine Aminotransferase 15 U/L (0-40); Albumin Level 4.3 g/dL (3.5-5.0); Alkaline Phosphatase 88 U/L (39-117); Anion Gap 13 (12-20); Aspartate Amino Transferase 17 U/L (5-37); Bilirubin Total 0.7 mg/dL (0.0-1.0); Blood Urea Nitrogen 11 mg/dL (9-16); Carbon Dioxide 29 mmol/L (22-29); Chloride 102 mmol/L (96-108); Cholesterol 206 mg/dL; Estimated Glomerular Filt Rate > 60; Glucose Fasting 83 mg/dL (60-99); HDL Cholesterol 69 mg/dL; LDL Cholesterol Calculated 122 mg/dl; Potassium 4.1 mmol/L (3.3-5.1); Sodium 140 mmol/L (135-145); Total Protein 6.6 g/dL (6.5-8.0); Triglycerides 78 mg/dL
[2021-11-22 12:03] LABS: TSH reflex Free T4 1.42 uIU/mL (0.32-4.0)
== END 2021-11-22 10:02 | disposition home or self-care (01) ==
LOC: HO.HMGCLDS 10:01
PROVIDERS: PCP Nurse Practitioner Family; Visit Provider Nurse Practitioner Family
DX: Z00.00 Encounter for general adult medical examination without abnormal findings (principal)
CPT/HCPCS: 36415; 80053; 80061; 81003; 84443; 85025

== ENCOUNTER 2021-11-24 10:48 | Outpatient (REF) | payer OTHER, SELFPAY ==
--- NOTE | ~2021-11-24 | US_ITS ---
EXAMINATION: US EXTRACRANIAL CAROTID DUPLEX, BILATERAL CLINICAL INFORMATION: Family history of carotid artery stenosis. COMPARISON: None. TECHNIQUE: Real-time ultrasound and Doppler techniques (integrating B-mode 2-D vascular images, Doppler spectral analysis and color-flow Doppler imaging) were utilized to interrogate the extracranial carotid arteries, the vertebral arteries and proximal subclavian arteries bilaterally. The degree of stenosis is determined by criteria similar to NASCET. FINDINGS: RIGHT SIDE: 1. There is no significant atherosclerotic plaque seen in the bifurcation/proximal ICA region. 2. The common carotid artery PSV proximally is 123 cm/s and distally 125 cm/s. 3. The proximal internal carotid artery velocities are 79 cm/s systolic and 13 cm/s diastolic. 4. The proximal external carotid artery PSV is 93 cm/s. 5. The vertebral artery shows antegrade flow. 6. The subclavian artery waveforms are normal. LEFT SIDE: 1. There is no significant atherosclerotic plaque seen in the bifurcation/proximal ICA region. 2. The common carotid artery PSV proximally is 130 cm/s and distally 98 cm/s. 3. The proximal internal carotid artery velocities are 75 cm/s systolic and 20 cm/s diastolic. 4. The proximal external carotid artery PSV is 97 cm/s. 5. The vertebral artery shows antegrade flow. 6. The subclavian artery waveforms are normal. US/US carotid duplex BI IMPRESSION: 1. RIGHT: Normal right internal carotid artery without atherosclerotic plaque or hemodynamically significant stenosis. 2. LEFT: Normal left internal carotid artery without atherosclerotic plaque or hemodynamically significant stenosis.
== END 2021-11-24 10:49 | disposition home or self-care (01) ==
LOC: HO.US 10:48
PROVIDERS: Visit Provider Nurse Practitioner Family
DX: Z13.6 Encounter for screening for cardiovascular disorders (principal); Z82.49 Family history of ischemic heart disease and other diseases of the circulatory system
CPT/HCPCS: 93880

== ENCOUNTER 2021-12-06 06:23 | Outpatient (REF) | payer OTHER, SELFPAY ==
--- NOTE | ~2021-12-06 | XR_ITS ---
EXAMINATION: XR ANKLE, LEFT CLINICAL INFORMATION: Pain in the left ankle. COMPARISON: Radiograph left ankle 10/25/2021. TECHNIQUE: AP, lateral, and mortise views of the left ankle. FINDINGS: Again noted postoperative changes of ORIF of medial malleolus and distal fibular fractures in unchanged alignment. No evidence of hardware failure. No significant change in the appearance of the fractures when compared to 10/25/2021. Ankle mortise is congruent. Redemonstration of diffuse osteopenia and nonspecific heterogeneous attenuation of the bone marrow. Unchanged moderate tibiotalar joint effusion and diffuse soft tissue swelling. XR/XR ankle LT min 3V IMPRESSION: 1. No significant change in the appearance of the fractures when compared to 10/25/2021. 2. No evidence of hardware failure. 3. Unchanged moderate tibiotalar joint effusion and diffuse soft tissue swelling.
== END 2021-12-06 06:24 | disposition home or self-care (01) ==
LOC: HO.HOSX 06:23
PROVIDERS: Visit Provider Physician Assistant
DX: M25.572 Pain in left ankle and joints of left foot (principal)
CPT/HCPCS: 73610

== ENCOUNTER 2022-01-10 14:00 | Outpatient (RCR) | payer OTHER, SELFPAY ==
--- NOTE | 2021-11-11 15:03 | MHC.PT.EP ---
[facility] [place] Office [place] Office [place] Office [address] Hardik Painter [address] [phone] F: [phone] F: [phone] F: [phone] F: [phone] Physical Therapy Plan of Care Date of Evaluation: Date of Surgery: 09/15/21 Diagnosis: displaced bilmalleolar fx of unspecified lower leg Assessment: 61 y/o male s/p L ankle ORIF 09/15/21. He sustained L displaced bimalleolar ankle fx occurred 09/06/21 after falling while playing tennis. He went to the ED and fx was reduced and placed NWB in a splint. He then had L ankle ORIF 09/15/21 and he was in a cast for 4 weeks with B axillary crutches NWB. He was just given a tall walking boot on 10/25/21 and is WBAT and does not use any AD anymore. Currently reports difficulty with prolonged walking, stairs, and previous hobbies such as tennis. Examination shows decreased L ankle AROM, decreased L ankle strength, impaired gait pattern, pain, and swelling. Recommend PT 2x/week for 8 weeks to address impairments, implement HEP, and optimize functional mobility. Frequency and Duration: The patient will be seen 2x/week for 8 weeks Short Term Goals: 4 week 1 Demonstrate compliance with HEP 2 Improve L ankle dorsiflexion to 12 degrees to facilitate gait 3. Improve L ankle plantarflexion to 40 degrees Custodial Goals: 8 weeks 1 I with HEP and self management of sx 2. Pt will improve L ankle strength to 4/5 to faciliate stairs 3. Pt will be able to ascend/descend stairs in step through pattern Treatment Plan: Modalities to reduce pain, spasms and effusion. Manual therapy to restore motion and function. Therapeutic exercise to improve strength and flexibility. Neuromuscular re-education for posture and balance. Therapeutic activities to return to functional activities of daily living. Electronically signed by: Nitza Lewis PT Please sign and return to therapist. Thank you for your referral.
--- NOTE | 2022-01-11 08:21 | MHC.PT.DC ---
[facility] [place] Office [place] Office [place] Office [address] Hardik Painter [address] [phone] F: [phone] F: [phone] F: [phone] F: [phone] Physical Therapy Discharge Report Diagnosis: displaced bilmalleolar fx of unspecified lower leg Date of Surgery: 09/15/21 Date of Evaluation: 11/11/21 Date of Discharge: 01/11/22 Treatments to Date: 16 Cancellations to Date: 0 No Shows to Date: 0 Discharge Status: Achieved Goals Improved Function Independent with HEP Discharge Summary: He has met all goals and is appropriate for d/c at this time. He has made good progress and will continue with I HEP. Electronically signed by: Nitza Lewis PT Please sign and return to therapist. Thank you for your referral.
== END 2022-01-11 08:21 | disposition home or self-care (01) ==
LOC: HO.PT 14:00
PROVIDERS: PCP Nurse Practitioner Family; Visit Provider Physician Assistant
DX: S82.843A Displaced bimalleolar fracture of unspecified lower leg, initial encounter for closed fracture (principal)
CPT/HCPCS: 97110; 97112; 97140; 97161; 97530

== ENCOUNTER 2022-01-24 10:05 | Outpatient (REF) | payer OTHER, SELFPAY ==
[2022-01-24 12:26] LABS: Alanine Aminotransferase 17 U/L (0-40); Albumin Level 4.3 g/dL (3.5-5.0); Alkaline Phosphatase 87 U/L (39-117); Anion Gap 12 (12-20); Aspartate Amino Transferase 18 U/L (5-37); Bilirubin Total 0.5 mg/dL (0.0-1.0); Blood Urea Nitrogen 18 mg/dL (9-16); Calcium 8.9 mg/dL (8.4-10.2); Carbon Dioxide 28 mmol/L (22-29); Chloride 104 mmol/L (96-108); Cholesterol 191 mg/dL; Estimated Glomerular Filt Rate > 60; Glucose Fasting 97 mg/dL (60-99); HDL Cholesterol 73 mg/dL; LDL Cholesterol Calculated 107 mg/dl; Potassium 4.1 mmol/L (3.3-5.1); Sodium 140 mmol/L (135-145); Total Protein 6.4 g/dL (6.5-8.0); Triglycerides 57 mg/dL
== END 2022-01-24 10:06 | disposition home or self-care (01) ==
LOC: HO.HMGCLDS 10:05
PROVIDERS: PCP Nurse Practitioner Family; Visit Provider Nurse Practitioner Family
DX: E78.5 Hyperlipidemia, unspecified (principal); I10 Essential (primary) hypertension
CPT/HCPCS: 36415; 80053; 80061

== ENCOUNTER → 2022-02-22 09:33 | Outpatient (BNVA) | payer OTHER, SELFPAY | PROVIDERS: PCP Nurse Practitioner Family; Visit Provider Physician Assistant | DX: Z13.89 Encounter for screening for other disorder (principal) ==

== ENCOUNTER 2022-09-19 16:23 | Outpatient (AMB) | payer OTHER, SELFPAY ==
[2022-09-19 16:44] VITALS: BP 130/82; PULSE 92; O2SAT 99; BMI 21.5
--- NOTE | 2022-09-19 16:44 | A.OFFPC_ITS ---
Vital Signs 09/19/22 16:44 Height 5 ft 10 in Weight 150 lb BMI 21.5 BP 130/82 Blood Pressure Location Rt brachial Position Sitting Pulse 92 Pulse Source Pulse Oximeter Pulse Oximetry (%) 99 Oxygen Delivery Method Room Air Intake Visit Reasons: PE Allergies No Known Allergies Allergy (Verified 09/19/22 16:46) Medication List - Last Reconciled 09/19/22 by AGUSTÍN Farrar citalopram 20 mg PO DAILY 90 days citalopram 10 mg PO DAILY 90 days finasteride 5 mg PO DAILY lisinopril 10 mg PO DAILY 90 days rosuvastatin 5 mg PO BEDTIME 90 days trazodone 100 mg PO BEDTIME Tobacco use date assessed: 09/19/22 Dental Screening Dental Screen Date: 09/19/22 Did you have a dental visit in the last 12 months?: Yes Did you have a dental problem in the last 6 months where you did not have access to dental care?: No Was dental information given to patient?: Patient has dentist HPI PE HPI Details Pt is here for a PE. Will order labs. Colon screen is up to date. Due for PSA, will order. Denies dribbling with urination, weak stream, and nocturia. [facility] Medical History Anxiety Hair loss Hypertension Sleep disorder Surgical History History of colonoscopy Family History Sister Mental health disorder Social History Housing: House Alcohol intake: current Alcohol intake frequency: 0-2 drinks per day Alcohol type: wine Patient Tobacco Use Status: Former Tobacco user Quit Date: 30 yr ago e-Cigarette/Vaping Use: Never Used Second Hand Smoke Exposure: No service: No Current occupational status: unemployed Cognitive needs: No Hearing needs: No Vision needs: No Questionnaire AUDIT C Alcohol Use Questionnaire (AUDIT-C) 1. How often do you have a drink containing alcohol?: 4 or more times a week 2. How many drinks containing alcohol do you have on a typical day when you are drinking?: 1 or 2 3. How often do you have six or more drinks on one occasion?: Less than monthly Total Score: 5 Review of Systems Const Denies chills and Denies fever(s) Eyes Denies blurry vision ENT Denies vertigo, Denies dizziness and Denies sore throat Card Denies chest pain at rest, Denies chest pain with activity, Denies diaphoresis, Denies dyspnea and Denies dyspnea on exertion Resp Denies cough, Denies dyspnea, Denies dyspnea on exertion and Denies wheezing GI Denies abdominal pain, Denies melena, Denies hematochezia, Denies constipation, Denies diarrhea and Denies loose stools Denies hematuria Musc Denies numbness and Denies tingling Skin/Breast Denies lesions Neuro Denies vertigo, Denies dizziness, Denies numbness and Denies tingling Psych Denies anxiety, Denies depression, Denies homicidal ideation, Denies suicidal ideation and Denies other (substance abuse) Aller/Immun Denies wheezing Physical exam (Primary Care) Vital Signs: Last Vital Signs Pulse 92 09/19/22 16:44 BP 130/82 09/19/22 16:44 Pulse Ox 99 09/19/22 16:44 Oxygen Delivery Method Room Air 09/19/22 16:44 BMI result Body Mass Index 21.5 Tobacco/Smoking Status: Tobacco use Status Tobacco use date assessed 09/19/22 09/19/22 16:50 Patient Tobacco Use Status Former Tobacco user 09/19/22 16:50 e-Cigarette/Vaping Use Never Used 09/19/22 16:50 Const General: cooperative Nutritional Appearance: well nourished Orientation/consciousness: patient oriented x3 HENMT Head: Yes normal to inspection, Yes normocephalic and Yes atraumatic Ears: TM's normal bilaterally Eyes General: appearance normal, both eyes and all related structures Alignment and Position: alignment normal and position normal Neck Neck: Yes normal visual inspection and Yes no lymphadenopathy Thyroid: Thyroid normal Resp Effort & Inspection: normal respiratory effort Auscultation: clear to auscultation bilaterally Cardio Rate: regular rate Rhythm: regular rhythm Heart sounds: S1 normal heart sound present, S2 normal heart sound present and no murmurs GI Palpation (GI): Soft to palpation and nontender Auscultation: normal bowel sounds Male General Exam: Yes normal external exam Penis: normal penis Scrotum: scrotum normal, testes descended bilaterally and no inguinal hernias Testes: no testicular mass Skin Rashes: no rashes Neuro General: patient oriented x3, moves all extremities, no focal motor deficits and deep tendon reflexes 2+ bilaterally Romberg Test: Negative Psych Appearance: grossly normal Mental Status: mental status grossly normal Speech and movement: Normal speech and movement present Affect: normal affect Attitude: cooperative Thought process: Normal thought process present Thought content: Normal thought content present Insight: Good insight present (Psych) Judgement: Good judgement present (Psych) Assessment and Plan Assessment & Plan (1) Physical exam: Code(s): Z00.00 - Encounter for general adult medical examination without abnormal findings (2) Screening PSA (prostate specific antigen): Code(s): Z12.5 - Encounter for screening for malignant neoplasm of prostate Orders: Orders Comprehensive [place]. Panel Fast Today Z00.00 - Encounter for general adult medical examination without abnormal findings Lipid Panel Today Z00.00 - Encounter for general adult medical examination without abnormal findings TSH reflex Free T4 Today Z00.00 - Encounter for general adult medical examination without abnormal findings Complete Blood Count Auto Diff Today Z00.00 - Encounter for general adult medical examination without abnormal findings UA CC w/rflx Micro + Cult Today Z00.00 - Encounter for general adult medical examination without abnormal findings Prostate Specific Antigen Scr Today Z12.5 - Encounter for screening for maligna nt neoplasm of prostate Coding Level of Care Code Est Pt Prev Care 40-64y(57033) Diagnoses Physical exam Z00.00 Screening PSA (prostate specific antigen) Z12.5
== END 2022-09-19 17:18 | disposition home or self-care (01) ==
PROVIDERS: Visit Provider Nurse Practitioner Family
DX: Z00.00 Encounter for general adult medical examination without abnormal findings (principal); Z12.5 Encounter for screening for malignant neoplasm of prostate
CPT/HCPCS: 99396

== ENCOUNTER 2022-10-03 09:27 | Outpatient (REF) | payer OTHER, SELFPAY ==
[2022-10-03 11:39] LABS: Appearance Urine Clear; Color Urine Yellow; Glucose Urine UA Negative (Negative); Leukocyte Esterase Urine Negative (Negative); Nitrite Urine Negative (Negative); PH 7.5 (5.0-9.0); Specific Gravity - Urine 1.015 (1.005-1.025); Urine Blood Negative (Negative); Urine Ketones Negative (Negative); Urine Protein Negative (Neg-Trace)
[2022-10-03 11:53] LABS: MANUAL DIFF FLAG NO
[2022-10-03 11:59] LABS: Basophils Percent Auto 0.6 % (0-2); Eosinophils Absolute Auto 0.1 X10*3/uL (0.0-0.4); Hematocrit 38.4 % (42.0-52.0); Hemoglobin 13.2 g/dl (14.0-18.0); Lymphocytes Absolute Auto 1.1 X10*3/uL (1.2-4.9); Lymphocytes Percent Auto 31.7 % (20-40); Mean Corpuscular HGB Conc 34.4 g/dl (31.0-36.0); Mean Corpuscular Hemoglobin 32.7 pg (27.0-33.0); Mean Platelet Volume 9.7 fL (9.4-12.4); Monocytes Absolute Auto 0.2 X10*3/uL (0.1-1.2); Monocytes Percent Auto 6.9 % (2-11); Neutrophils Absolute Auto 2.1 x10*3/uL (2.0-8.3); Neutrophils Percent Auto 58.8 % (45-73); Platelet Count 181 X10*3/uL (160-400); Red Blood Count 4.04 X10*6/uL (4.60-5.80); Red Cell Distribution Width 12.3 % (11.0-16.0); White Blood Count 3.5 X10*3/uL (4.8-10.8)
[2022-10-03 12:18] LABS: Alanine Aminotransferase 15 U/L (0-40); Albumin Level 4.1 g/dL (3.5-5.0); Alkaline Phosphatase 72 U/L (39-117); Anion Gap 12 (12-20); Aspartate Amino Transferase 18 U/L (5-37); Bilirubin Total 0.6 mg/dL (0.0-1.0); Blood Urea Nitrogen 15 mg/dL (9-16); Carbon Dioxide 27 mmol/L (22-29); Chloride 106 mmol/L (96-108); Cholesterol 155 mg/dL (<200); Estimated Glomerular Filt Rate > 60; Glucose Fasting 93 mg/dL (60-99); HDL Cholesterol 67 mg/dL (>40); LDL Cholesterol Calculated 80 mg/dL (<100); Potassium 4.7 mmol/L (3.3-5.1); Sodium 140 mmol/L (135-145); Total Protein 6.5 g/dL (6.5-8.0); Triglycerides 44 mg/dL (<150)
[2022-10-03 12:27] LABS: Prostate Specific Antigen Scr < 0.10 ng/mL (<0.05-4.0)
[2022-10-03 12:36] LABS: TSH reflex Free T4 1.11 uIU/mL (0.32-4.0)
== END 2022-10-03 09:28 | disposition home or self-care (01) ==
LOC: HO.HMGCLDS 09:27
PROVIDERS: PCP Nurse Practitioner Family; Visit Provider Nurse Practitioner Family
DX: Z00.00 Encounter for general adult medical examination without abnormal findings (principal); Z12.5 Encounter for screening for malignant neoplasm of prostate; D64.9 Anemia, unspecified; E78.5 Hyperlipidemia, unspecified; I10 Essential (primary) hypertension
CPT/HCPCS: 36415; 80053; 80061; 81003; 84153; 84443; 85025

== ENCOUNTER → 2022-10-31 11:08 | Outpatient (BNV) | payer OTHER, SELFPAY | PROVIDERS: PCP Nurse Practitioner Family; Visit Provider Internal Medicine | DX: D72.819 Decreased white blood cell count, unspecified (principal); E83.110 Hereditary hemochromatosis | CPT/HCPCS: 99204; 99214 ==

== ENCOUNTER 2022-11-09 08:32 | Outpatient (REF) | payer OTHER, SELFPAY | END 2022-11-09 08:33 | disposition home or self-care (01) | LOC: HO.LAB 08:32 | PROVIDERS: PCP Nurse Practitioner Family; Visit Provider Internal Medicine | DX: E83.19 Other disorders of iron metabolism (principal) | CPT/HCPCS: 36415; 81256 ==

== ENCOUNTER 2023-02-07 11:58 | Outpatient (REF) | payer OTHER, SELFPAY | END 2023-02-07 11:59 | disposition home or self-care (01) | LOC: HO.BBR 11:58 | PROVIDERS: PCP Nurse Practitioner Family; Visit Provider Internal Medicine | DX: Z13.89 Encounter for screening for other disorder (principal) ==

== ENCOUNTER 2023-03-22 11:48 | Outpatient (REF) | payer OTHER, SELFPAY | END 2023-03-22 11:49 | disposition home or self-care (01) | LOC: HO.BBR 11:48 | PROVIDERS: PCP Nurse Practitioner Family; Visit Provider Internal Medicine | DX: Z13.89 Encounter for screening for other disorder (principal) ==

== ENCOUNTER 2023-05-24 11:50 | Outpatient (REF) | payer OTHER, SELFPAY | END 2023-05-24 11:51 | disposition home or self-care (01) | LOC: HO.BBR 11:50 | PROVIDERS: PCP Nurse Practitioner Family; Visit Provider Internal Medicine | DX: Z13.89 Encounter for screening for other disorder (principal) ==

== ENCOUNTER 2023-07-24 11:55 | Outpatient (REF) | payer OTHER, SELFPAY | END 2023-07-24 11:56 | disposition home or self-care (01) | LOC: HO.BBR 11:55 | PROVIDERS: PCP Nurse Practitioner Family; Visit Provider Internal Medicine | DX: Z13.89 Encounter for screening for other disorder (principal) ==